=== PATIENT | female | born 1970 | race Caucasian/White ===

== ENCOUNTER 2018-10-29 23:52 | Emergency (ER) | payer OTHER ==
[~2018-10-29] VITALS: Ht 167.6 cm; Wt 59.4 kg
--- OUTSIDE RECORDS SUMMARY | 2018-10-29 23:55 | XMS REPORT | Summary of Care ---
Author Author [facility] Organization [facility] Address Unknown Phone Unavailable Encounter FIN [facility] [id number] Date(s): 10/23/17 - 10/23/17 [facility] [address] [place], [place] [address] Discharge Diagnosis: Sacrococcygeal disorders, not elsewhere classified Discharge Disposition: Discharged to Home or Self Care Attending Physician: Arnulfo Durbin MD Admitting Physician: Arnulfo Durbin MD Vital Signs 1 2 3 Most recent to oldest [Reference Range]: 36.0 DegC *LOW* (10/23/17 2:25 PM) 37.0 DegC (10/23/17 12:25 PM) Temperature Temporal Artery [36.3-37.8 DegC] 96.8 (10/23/17 2:25 PM) Temperature Temporal Fahrenheit 68 bpm (10/23/17 2:40 PM) 68 bpm (10/23/17 2:35 PM) 70 bpm (10/23/17 2:30 PM) Peripheral Pulse Rate [55-105 bpm] 16 (10/23/17 2:40 PM) 16 (10/23/17 2:35 PM) 16 (10/23/17 2:30 PM) Respiratory Rate [12-20] 98 % (10/23/17 2:40 PM) 98 % (10/23/17 2:35 PM) 98 % (10/23/17 2:30 PM) SpO2 [90-100 %] 105/58 mmHg *LOW* (10/23/17 2:40 PM) 110/59 mmHg (10/23/17 2:35 PM) 93/55 mmHg *LOW* (10/23/17 2:30 PM) Blood Pressure [110-120/65-85 mmHg] 73.7 mmHg (10/23/17 2:40 PM) 76 mmHg (10/23/17 2:35 PM) 67.7 mmHg (10/23/17 2:30 PM) Mean Arterial Pressure, Cuff 167 cm (10/23/17 12:25 PM) Height 167 cm (10/23/17 12:25 PM) Height/Length Dosing 66 in (10/23/17 12:25 PM) Height Inches 62.1 kg (10/23/17 12:25 PM) Weight 62.1 kg (10/23/17 12:25 PM) Weight Dosing 137 lb (10/23/17 12:25 PM) Weight Pounds 22.27 kg/m2 (10/23/17 12:25 PM) Body Mass Index Problem List Condition Effective Dates Status Health Status Informant Back pain(Confirmed) Active Allergies, Adverse Reactions, Alerts No Known Allergies Medications ceFAZolin 1 gm, Powder-Inj, IV, Once, first dose 10/23/17 14:09:00 CDT, stop date 10/23/17 14:09:00 CDT Start Date: 10/23/17 Stop Date: 10/23/17 Status: Completed ceFAZolin 1 gm, Soln-IV, IV Piggyback, Once, infuse over 30 minutes, first dose 10/23/17 1 3:00:00 CDT, stop date 10/23/17 13:00:00 CDT, Prophylaxis Start Date: 10/23/17 Stop Date: 10/23/17 Status: Completed gabapentin 300 mg oral capsule mg caps, Oral, TID, 0 Refill(s) Start Date: 10/23/17 Stop Date: 11/06/17 Status: Ordered ibuprofen 800 mg oral tablet 800 mg=1 tabs, Oral, BID, # 90 tabs, 0 Refill(s) Start Date: 03/26/15 Stop Date: 04/09/15 Status: Ordered lidocaine 2 mL, Injection, IV, Once, first dose 10/23/17 14:08:00 CDT, stop date 10/23/17 14:08:00 CDT Start Date: 10/23/17 Stop Date: 10/23/17 Status: Completed LR 1,000 mL 1,000 mL, IV, 100 mL/hr, start date 10/23/17 12:09:00 CDT, For Adults Start Date: 10/23/17 Stop Date: 10/23/17 Status: Discontinued LR 500 mL 500 mL, IV, 75 mL/hr, start date 10/23/17 12:09:00 CDT Start Date: 10/23/17 Stop Date: 10/23/17 Status: Discontinued Lyrica 75 mg oral capsule 75 mg=1 caps, Oral, BID, 0 Refill(s) Start Date: 03/26/15 Stop Date: 10/23/17 Status: Discontinued Misc Medication 300 mL, Soln-IV, IV, Once, first dose 10/23/17 14:21:00 CDT, stop date 10/23/17 14:21:00 CDT Start Date: 10/23/17 Stop Date: 10/23/17 Status: Completed Goodrich 5 mg-325 mg oral tablet tabs, Oral, q6hr, 0 Refill(s) Start Date: 10/23/17 Stop Date: 11/06/17 Status: Ordered Pain Ease topical spray 1 sprays, [place], TOP, Once, first dose 10/23/17 13:00:00 CDT, stop date 10/23/17 13:00:00 CDT, Apply topically for 4 - 10 seconds from a distance of 3 - 7 inc hes from the procedure site Start Date: 10/23/17 Stop Date: 10/23/17 Status: Completed propofol 50 mg=5 mL, Emulsion, IV, Once, first dose 10/23/17 14:17:00 CDT, stop date 10/05 14:17:00 CDT Start Date: 10/23/17 Stop Date: 10/23/17 Status: Completed propofol 50 mg=5 mL, Emulsion, IV, Once, first dose 10/23/17 14:13:00 CDT, stop date 10/05 14:13:00 CDT Start Date: 10/23/17 Stop Date: 10/23/17 Status: Completed propofol 50 mg=5 mL, Emulsion, IV, Once, first dose 10/23/17 14:09:00 CDT, stop date 10/05 14:09:00 CDT Start Date: 10/23/17 Stop Date: 10/23/17 Status: Completed Zipsor 25 mg oral capsule 25 mg=1 caps, Oral, QID, PRN for pain, # 40 caps, 0 Refill(s) Start Date: 03/26/15 Stop Date: 04/09/15 Status: Ordered Results LABORATORY Most recent to 1 oldest [Reference Range]: urine beta hcg Negative, Control Present (10/23/17 12:48 PM) Immunizations No data available for this section Procedures No data available for this section Social History Social History Type Response Assessment and Plan No data available for this section
--- OUTSIDE RECORDS SUMMARY | 2018-10-29 23:55 | XMS REPORT | Summary of Care ---
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, lumbar reg ion Discharge Disposition: Discharged to Home or Self Care Attending Physician: Arnulfo Durbin MD Admitting Physician: Arnulfo Durbin MD Vital Signs 1 2 3 Most recent to oldest [Reference Range]: 36.2 DegC *LOW* (12/25/17 9:20 AM) 36.3 DegC (12/25/17 8:20 AM) Temperature Temporal Artery [36.3-37.8 DegC] 97.16 (12/25/17 9:20 AM) Temperature Temporal Fahrenheit 76 bpm (12/25/17 9:35 AM) 73 bpm (12/25/17 9:30 AM) 73 bpm (12/25/17 9:25 AM) Peripheral Pulse Rate [55-105 bpm] 16 (12/25/17 9:35 AM) 16 (12/25/17 9:30 AM) 12 (12/25/17 9:25 AM) Respiratory Rate [12-20] 97 % (12/25/17 9:35 AM) 97 % (12/25/17 9:30 AM) 99 % (12/25/17 9:25 AM) SpO2 [90-100 %] 111/53 mmHg (12/25/17 9:35 AM) 105/67 mmHg *LOW* (12/25/17 9:30 AM) 97/58 mmHg *LOW* (12/25/17 9:25 AM) Blood Pressure [110-120/65-85 mmHg] 72.3 mmHg (12/25/17 9:35 AM) 79.7 mmHg (12/25/17 9:30 AM) 71 mmHg (12/25/17 9:25 AM) Mean Arterial Pressure, Cuff 167 cm (12/25/17 8:20 AM) 167 cm (12/24/17 4:08 PM) Height 167.64 cm (12/24/17 4:08 PM) Height/Length Estimated 167 cm (12/25/17 8:20 AM) 167 cm (12/24/17 4:08 PM) Height/Length Dosing 66 in (12/25/17 8:20 AM) 66 in (12/24/17 4:08 PM) Height Inches 59 kg (12/25/17 8:20 AM) 59 kg (12/24/17 4:08 PM) Weight 62 kg (12/24/17 4:08 PM) Weight Estimated 59 kg (12/25/17 8:20 AM) 59 kg (12/24/17 4:08 PM) Weight Dosing 130 lb (12/25/17 8:20 AM) 130 lb (12/24/17 4:08 PM) Weight Pounds 21.16 kg/m2 (12/25/17 8:20 AM) 21.16 kg/m2 (12/24/17 4:08 PM) Body Mass Index 22.06 kg/m2 (12/24/17 4:08 PM) Body Mass Index Estimated Problem List Condition Effective Dates Status Health Status Informant Back pain(Confirmed) Active Allergies, Adverse Reactions, Alerts No Known Allergies Medications ceFAZolin 1 gm, Soln-IV, IV Piggyback, Once, infuse over 30 minutes, first dose 12/25/17 9 :00:00 CDT, stop date 12/25/17 9:00:00 CDT, Prophylaxis Start Date: 12/25/17 Stop Date: 12/25/17 Status: Completed ceFAZolin 1 gm, Powder-Inj, IV, Once, first dose 12/25/17 9:03:00 CDT, stop date 12/25/17 9:03:00 CDT Start Date: 12/25/17 Stop Date: 12/25/17 Status: Completed gabapentin 300 mg oral capsule mg caps, Oral, TID, 0 Refill(s) Start Date: 10/23/17 Stop Date: 11/06/17 Status: Ordered ibuprofen 800 mg oral tablet 800 mg=1 tabs, Oral, BID, # 90 tabs, 0 Refill(s) Start Date: 03/26/15 Stop Date: 04/09/15 Status: Ordered lidocaine 2 mL, Injection, IV, Once, first dose 12/25/17 9:02:00 CDT, stop date 12/25/17 9 :02:00 CDT Start Date: 12/25/17 Stop Date: 12/25/17 Status: Completed LR 500 mL 500 mL, IV, 75 mL/hr, start date 12/25/17 8:02:00 CDT Start Date: 12/25/17 Stop Date: 12/25/17 Status: Discontinued Lyrica 75 mg oral capsule 75 mg=1 caps, Oral, BID, 0 Refill(s) Start Date: 03/26/15 Stop Date: 10/23/17 Status: Discontinued Misc Medication 200 mL, Soln-IV, IV, Once, first dose 12/25/17 9:20:00 CDT, stop date 12/25/17 9 :20:00 CDT Start Date: 12/25/17 Stop Date: 12/25/17 Status: Completed [place] 5 mg-325 mg oral tablet tabs, Oral, q6hr, 0 Refill(s) Start Date: 10/23/17 Stop Date: 11/06/17 Status: Ordered propofol 50 mg=5 mL, Emulsion, IV, Once, first dose 12/25/17 9:06:00 CDT, stop date 12/25 9:06:00 CDT Start Date: 12/25/17 Stop Date: 12/25/17 Status: Completed propofol 50 mg=5 mL, Emulsion, IV, Once, first dose 12/25/17 9:08:00 CDT, stop date 12/25 9:08:00 CDT Start Date: 12/25/17 Stop Date: 12/25/17 Status: Completed propofol 50 mg=5 mL, Emulsion, IV, Once, first dose 12/25/17 9:14:00 CDT, stop date 12/25 9:14:00 CDT Start Date: 12/25/17 Stop Date: 12/25/17 Status: Completed propofol 50 mg=5 mL, Emulsion, IV, Once, first dose 12/25/17 9:11:00 CDT, stop date 12/25 9:11:00 CDT Start Date: 12/25/17 Stop Date: 12/25/17 Status: Completed propofol 50 mg=5 mL, Emulsion, IV, Once, first dose 12/25/17 9:03:00 CDT, stop date 12/25 9:03:00 CDT Start Date: 12/25/17 Stop Date: 12/25/17 Status: Completed Zipsor 25 mg oral capsule 25 mg=1 caps, Oral, QID, PRN for pain, # 40 caps, 0 Refill(s) Start Date: 03/26/15 Stop Date: 12/24/17 Status: Discontinued Results LABORATORY Most recent to 1 oldest [Reference Range]: urine beta hcg Negative, Control Present (12/25/17 8:36 AM) Immunizations No data available for this section Procedures Procedure Date Related Diagnosis Body Site CODY Social History Social History Type Response Assessment and Plan No data available for this section
--- OUTSIDE RECORDS SUMMARY | 2018-10-29 23:55 | XMS REPORT | Continuity of Care Document ---
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, lumbar region 12/25/2017 12/27/2017 [facility] Discharge Diagnosis: Sacrococcygeal disorders, not elsewhere classified 10/23/2017 10/25/2017 [facility] Back pain Active Problem 01/31/2018 [facility] Medications Medication Details Route Status Patient Instructions Ordering Provider Order Date Source Misc Medication 300 mL, Soln-IV, IV, Once, first dose 01/29/18 9:31:00 CDT, stop date 01/29/18 9:31:00 CDT Inactive 01/29/2018 [facility] propofol 50 mg=5 mL, Emulsion, IV, Once, first dose 01/29/18 9:27:00 CDT, stop date 01/29/18 9:27:00 CDT Inactive 01/29/2018 [facility] propofol 50 mg=5 mL, Emulsion, IV, Once, first dose 01/29/18 9:25:00 CDT, stop date 01/29/18 9:25:00 CDT Inactive 01/29/2018 [facility] propofol 50 mg=5 mL, Emulsion, IV, Once, first dose 01/29/18 9:22:00 CDT, stop date 01/29/18 9:22:00 CDT Inactive 01/29/2018 [facility] propofol 50 mg=5 mL, Emulsion, IV, Once, first dose 01/29/18 9:19:00 CDT, stop date 01/29/18 9:19:00 CDT Inactive 01/29/2018 [facility] ceFAZolin 1 gm, Powder-Inj, IV, Once, first dose 01/29/18 9:19:00 CDT, stop date 01/29/18 9:19:00 CDT Inactive 01/29/2018 [facility] lidocaine 2 mL, Injection, IV, Once, first dose 01/29/18 9:17:00 CDT, stop date 01/29/18 9:17:00 CDT Inactive 01/29/2018 [facility] Cefazolin 1 gm, Soln-IV, IV Piggyback, Once, infuse over 30 minutes, first dose 01/29/18 8:00:00 CDT, stop date 01/29/18 8:00:00 CDT, Prophylaxis Inactive 01/29/2018 [facility] Pain Ease topical spray 1 sprays, Dike, TOP, Once, first dose 01/29/18 8:00:00 CDT, stop date 01/29/18 8:00:00 CDT, Apply topically for 4 - 10 seconds from a distance of 3 - 7 inches from the procedure site Inactive 01/29/2018 [facility] LR 500 mL 500 mL, IV, 75 mL/hr, start date 01/29/18 7:57:00 CDT Inactive 01/29/2018 [facility] Misc Medication 200 mL, Soln-IV, IV, Once, first dose 12/25/17 9:20:00 CDT, stop date 12/25/17 9:20:00 CDT Inactive 12/25/2017 [facility] propofol 50 mg=5 mL, Emulsion, IV, Once, first dose 12/25/17 9:14:00 CDT, stop date 12/25/17 9:14:00 CDT Inactive 12/25/2017 [facility] propofol 50 mg=5 mL, Emulsion, IV, Once, first dose 12/25/17 9:11:00 CDT, stop date 12/25/17 9:11:00 CDT Inactive 12/25/2017 [facility] propofol 50 mg=5 mL, Emulsion, IV, Once, first dose 12/25/17 9:08:00 CDT, stop date 12/25/17 9:08:00 CDT Inactive 12/25/2017 [facility] propofol 50 mg=5 mL, Emulsion, IV, Once, first dose 12/25/17 9:06:00 CDT, stop date 12/25/17 9:06:00 CDT Inactive 12/25/2017 [facility] ceFAZolin 1 gm, Powder-Inj, IV, Once, first dose 12/25/17 9:03:00 CDT, stop date 12/25/17 9:03:00 CDT Inactive 12/25/2017 [facility] propofol 50 mg=5 mL, Emulsion, IV, Once, first dose 12/25/17 9:03:00 CDT, stop date 12/25/17 9:03:00 CDT Inactive 12/25/2017 [facility] lidocaine 2 mL, Injection, IV, Once, first dose 12/25/17 9:02:00 CDT, stop date 12/25/17 9:02:00 CDT Inactive 12/25/2017 [facility] Cefazolin 1 gm, Soln-IV, IV Piggyback, Once, infuse over 30 minutes, first dose 12/25/17 9:00:00 CDT, stop date 12/25/17 9:00:00 CDT, Prophylaxis Inactive 12/25/2017 [facility] LR 500 mL 500 mL, IV, 75 mL/hr, start date 12/25/17 8:02:00 CDT Inactive 12/25/2017 [facility] Misc Medication 300 mL, Soln-IV, IV, Once, first dose 10/23/17 14:21:00 CDT, stop date 10/23/17 14:21:00 CDT Inactive 10/23/2017 [facility] propofol 50 mg=5 mL, Emulsion, IV, Once, first dose 10/23/17 14:17:00 CDT, stop date 10/23/17 14:17:00 CDT Inactive 10/23/2017 [facility] propofol 50 mg=5 mL, Emulsion, IV, Once, first dose 10/23/17 14:13:00 CDT, stop date 10/23/17 14:13:00 CDT Inactive 10/23/2017 [facility] propofol 50 mg=5 mL, Emulsion, IV, Once, first dose 10/23/17 14:09:00 CDT, stop date 10/23/17 14:09:00 CDT Inactive 10/23/2017 [facility] ceFAZolin 1 gm, Powder-Inj, IV, Once, first dose 10/23/17 14:09:00 CDT, stop date 10/23/17 14:09:00 CDT Inactive 10/23/2017 [facility] lidocaine 2 mL, Injection, IV, Once, first dose 10/23/17 14:08:00 CDT, stop date 10/23/17 14:08:00 CDT Inactive 10/23/2017 [facility] Pain Ease topical spray 1 sprays, Dike, TOP, Once, first dose 10/23/17 13:00:00 CDT, stop date 10/23/17 13:00:00 CDT, Apply topically for 4 - 10 seconds from a distance of 3 - 7 inches from the procedure site Inactive 10/23/2017 [facility] Cefazolin 1 gm, Soln-IV, IV Piggyback, Once, infuse over 30 minutes, first dose 10/23/17 13:00:00 CDT, stop date 10/23/17 13:00:00 CDT, Prophylaxis Inactive 10/23/2017 [facility] Acetaminophen 325 MG / Hydrocodone Bitartrate 5 MG Oral Tablet [Shunk 5/325] tabs, Oral, q6hr, 0 Refill(s) Active 10/23/2017 [facility] gabapentin 300 MG Oral Capsule mg caps, Oral, TID, 0 Refill(s) Active 10/23/2017 [facility] LR 1,000 mL 1,000 mL, IV, 100 mL/hr, start date 10/23/17 12:09:00 CDT, For Adults Inactive 10/23/2017 [facility] LR 500 mL 500 mL, IV, 75 mL/hr, start date 10/23/17 12:09:00 CDT Inactive 10/23/2017 [facility] Valium 10 mg=2 mL, Injection, IV Push, Once, first dose 03/27/15 13:00:00 PATIENT OMBUDSPERSON, stop date 03/27/15 13:00:00 PATIENT OMBUDSPERSON Inactive Gm 03/27/2015 [facility] Medication 300 mL, Soln-IV, IV, Once, first dose 03/27/15 11:31:00 PATIENT OMBUDSPERSON, stop date 03/27/15 11:31:00 PATIENT OMBUDSPERSON Inactive [facility] 03/27/2015 [facility] propofol 50 mg=5 mL, Emulsion, IV, Once, first dose 03/27/15 11:25:00 PATIENT OMBUDSPERSON, stop date 03/27/15 11:25:00 PATIENT OMBUDSPERSON Inactive [facility] 03/27/2015 [facility] propofol 50 mg=5 mL, Emulsion, IV, Once, first dose 03/27/15 11:23:00 PATIENT OMBUDSPERSON, stop date 03/27/15 11:23:00 PATIENT OMBUDSPERSON Inactive [facility] 03/27/2015 [facility] midazolam 2 mg=2 mL, Injection, IV, Once, first dose 03/27/15 11:23:00 PATIENT OMBUDSPERSON, stop date 03/27/15 11:23:00 PATIENT OMBUDSPERSON Inactive [facility] 03/27/2015 [facility] midazolam 2 mg=2 mL, Injection, IV, Once, first dose 03/27/15 11:19:00 PATIENT OMBUDSPERSON, stop date 03/27/15 11:19:00 PATIENT OMBUDSPERSON Inactive [place] 03/27/2015 [facility] lidocaine 2 mL, Injection, IV, Once, first dose 03/27/15 11:19:00 PATIENT OMBUDSPERSON, stop date 03/27/15 11:19:00 PATIENT OMBUDSPERSON Inactive [place] 03/27/2015 [facility] ethyl chloride topical spray 1 sprays, Dike, TOP, Once, first dose 03/27/15 11:00:00 PATIENT OMBUDSPERSON, stop date 03/27/15 11:00:00 PATIENT OMBUDSPERSON Inactive Gm 03/27/2015 [facility] LR 500 mL 500 mL, IV, 75 mL/hr, start date 03/27/15 10:41:00 PATIENT OMBUDSPERSON Inactive Gm 03/27/2015 [facility] Ibuprofen 800 MG Oral Tablet 800 mg=1 tabs, Oral, BID, # 90 tabs, 0 Refill(s) Active 03/26/2015 [facility] ibuprofen 800 mg oral tablet 800 mg=1 tabs, Oral, BID, # 90 tabs, 0 Refill(s) Active 03/26/2015 [facility] Diclofenac Potassium 25 MG Oral Capsule [Zipsor] 25 mg=1 caps, Oral, QID, PRN for pain, # 40 caps, 0 Refill(s) No Longer Active 03/26/2015 [facility] Zipsor 25 mg oral capsule 25 mg=1 caps, Oral, QID, PRN for pain, # 40 caps, 0 Refill(s) Active 03/26/2015 [facility] pregabalin 75 MG Oral Capsule [Lyrica] 75 mg=1 caps, Oral, BID, 0 Refill(s) No Longer Active 03/26/2015 [facility] Lyrica 75 mg oral capsule 75 mg=1 caps, Oral, BID, 0 Refill(s) Active 03/26/2015 [facility] Allergies, Adverse Reactions, Alerts No Known Medication Allergies Immunizations No Data Provided for This Section Results Order Name Results Value Reference Range Date Interpretation Comments Source LABORATORY urine beta hcg Negative, Control Present (12/25/17 8:36 AM) 12/25/2017 [facility] LABORATORY urine beta hcg Negative, Control Present (10/23/17 12:48 PM) 10/23/2017 [facility] Pathology Reports No Data Provided for This Section Diagnostic Reports No Data Provided for This Section Consultation Notes No Data Provided for This Section Discharge Summaries No Data Provided for This Section History and Physicals No Data Provided for This Section Vital Signs Vital Sign Value Date Comments Source Systolic (mm Hg) 100 01/29/2018 [facility] Diastolic (mm Hg) 56 01/29/2018 [facility] Respitory Rate 16 01/29/2018 [facility] Heart Rate 81 01/29/2018 [facility] Temperature Oral (F) 36.1 [place] 01/29/2018 [facility] Heart Rate 69 01/29/2018 [facility] Systolic (mm Hg) 92 01/29/2018 [facility] Diastolic (mm Hg) 52 01/29/2018 [facility] Respitory Rate 16 01/29/2018 [facility] Systolic (mm Hg) 105 01/29/2018 [facility] Diastolic (mm Hg) 64 01/29/2018 [facility] Height 167 cm 01/29/2018 [facility] Weight Measured 60 01/29/2018 [facility] Respitory Rate 16 01/29/2018 [facility] Peripheral Pulse Rate 69 01/29/2018 [facility] Temperature Oral (F) 36.5 Lucina 01/29/2018 [facility] Systolic (mm Hg) 111 12/25/2017 [facility] Diastolic (mm Hg) 53 12/25/2017 [facility] Peripheral Pulse Rate 76 12/25/2017 [facility] Respitory Rate 16 12/25/2017 [facility] Systolic (mm Hg) 105 12/25/2017 [facility] Diastolic (mm Hg) 67 12/25/2017 [facility] Peripheral Pulse Rate 73 12/25/2017 [facility] Respitory Rate 16 12/25/2017 [facility] Systolic (mm Hg) 97 12/25/2017 [facility] Diastolic (mm Hg) 58 12/25/2017 [facility] Respitory Rate 12 12/25/2017 [facility] Peripheral Pulse Rate 73 12/25/2017 [facility] Temperature Oral (F) 36.2 Lucina 12/25/2017 [facility] Height 167 cm 12/25/2017 [facility] Weight Measured 59 12/25/2017 [facility] Temperature Oral (F) 36.3 Lucina 12/25/2017 [facility] Weight Measured 59 12/24/2017 [facility] Height 167 cm 12/24/2017 [facility] Respitory Rate 16 10/23/2017 [facility] Peripheral Pulse Rate 68 10/23/2017 [facility] Systolic (mm Hg) 105 10/23/2017 [facility] Diastolic (mm Hg) 58 10/23/2017 [facility] Systolic (mm Hg) 110 10/23/2017 [facility] Diastolic (mm Hg) 59 10/23/2017 [facility] Peripheral Pulse Rate 68 10/23/2017 [facility] Respitory Rate 16 10/23/2017 [facility] Systolic (mm Hg) 93 10/23/2017 [facility] Diastolic (mm Hg) 55 10/23/2017 [facility] Respitory Rate 16 10/23/2017 [facility] Peripheral Pulse Rate 70 10/23/2017 [facility] Temperature Oral (F) 36.0 Lucina 10/23/2017 [facility] Temperature Oral (F) 37.0 Lucina 10/23/2017 [facility] Weight Measured 62.1 10/23/2017 [facility] Height 167 cm 10/23/2017 [facility] Heart Rate 63 03/27/2015 [facility] [place] Respitory Rate 14 03/27/2015 [facility] [place] Systolic (mm Hg) 114/68 03/27/2015 [facility] [place] Systolic (mm Hg) 93/64 03/27/2015 [facility] [place] Respitory Rate 15 03/27/2015 [facility] [place] Heart Rate 63 03/27/2015 [facility] [place] Systolic (mm Hg) 104/67 03/27/2015 [facility] [place] Heart Rate 64 03/27/2015 [facility] [place] Respitory Rate 15 03/27/2015 [facility] [place] Temperature Oral (F) 36.5 Lucina 03/27/2015 [facility] [place] Weight 62.14 03/27/2015 [facility] [place] Peripheral Pulse Rate 66 03/27/2015 [facility] [place] Temperature Oral (F) 36.5 Lucina 03/27/2015 [facility] [place] Weight 62 03/26/2015 [facility] [place] Height 167.64 cm 03/26/2015 [facility] [place] Weight 22.06 03/26/2015 [facility] Encounters Location Location Details Encounter Type Encounter Number Reason For Visit Attending Provider ADM Date DC Date Status Source [facility] Outpatient [id number] Chool Worrell MD 03/27/2015 03/27/2015 Discharged [facility] Outpatient [id number] Arnulfo Ramakrishna 10/23/2017 10/23/2017 Discharged [facility] Outpatient [id number] Arnulfo Ramakrishna 10/23/2017 10/23/2017 [facility] Outpatient [id number] Arnulfo Ramakrishna 12/25/2017 12/25/2017 Discharged [facility] Outpatient [id number] Arnulfo Ramakrishna 12/25/2017 12/25/2017 [facility] Outpatient [id number] Arnulfo Ramakrishna 01/29/2018 01/29/2018 Active [facility] Outpatient [id number] Arnulfo Ramakrishna 01/29/2018 01/29/2018 [facility] Procedures Procedure Code Date Perfomer Comments Source breast implants [facility] knee surgery [facility] CODY [facility] BLADDER SLING [facility] HYESTERECTOMY [facility] Assessment and Plan No Data Provided for This Section Plan of Care No Data Provided for This Section Social History Social History Date Source Social History TypeResponse [facility] Family History No Data Provided for This Section Advance Directives No Data Provided for This Section Functional Status No Data Provided for This Section
--- OUTSIDE RECORDS SUMMARY | 2018-10-29 23:55 | XMS REPORT | CCD ---
Author Author Auto Generated Organization [facility] Address Unknown Phone Unavailable Care Team Providers Care Lead Sustainability Specialist Name Role Phone Gm BENAVIDEZ, Cholo Nava CP Unavailable Allergies, Adverse Reactions, Alerts Substance Reaction Status No Known Allergies Active Problem List Condition Effective Dates Status Back pain Active Medications Medication Instructions Start Date End Date Status ibuprofen 800 mg 800 mg=1 tabs, Oral, BID, # 90 03/26/2015 04/09/2015 Ordered oral tablet tabs, 0 Refill(s) Valium 10 mg=2 mL, Injection, IV Push, 03/27/2015 03/27/2015 Ordered Once, first dose 03/27/15 13:00:00 PEST CONTROL OPERATOR, stop date 03/27/15 13:00:00 PEST CONTROL OPERATOR ethyl chloride 1 sprays, [place], TOP, Once, first 03/27/2015 03/27/2015 Completed topical spray dose 03/27/15 11:00:00 PEST CONTROL OPERATOR, stop date 03/27/15 11:00:00 PEST CONTROL OPERATOR LR 500 mL 500 mL, IV, 75 mL/hr, start date 03/27/2015 03/27/2015 Discontinued 03/27/15 10:41:00 PEST CONTROL OPERATOR Zipsor 25 mg oral 25 mg=1 caps, Oral, QID, PRN for 03/26/2015 04/09/2015 Ordered capsule pain, # 40 caps, 0 Refill(s) Lyrica 75 mg oral 75 mg=1 caps, Oral, BID, 0 03/26/2015 04/09/2015 Ordered capsule Refill(s) propofol 50 mg=5 mL, Emulsion, IV, Once, 03/27/2015 03/27/2015 Completed first dose 03/27/15 11:23:00 PEST CONTROL OPERATOR, stop date 03/27/15 11:23:00 PEST CONTROL OPERATOR propofol 50 mg=5 mL, Emulsion, IV, Once, 03/27/2015 03/27/2015 Completed first dose 03/27/15 11:25:00 PEST CONTROL OPERATOR, stop date 03/27/15 11:25:00 PEST CONTROL OPERATOR midazolam 2 mg=2 mL, Injection, IV, Once, 03/27/2015 03/27/2015 Completed first dose 03/27/15 11:23:00 PEST CONTROL OPERATOR, stop date 03/27/15 11:23:00 PEST CONTROL OPERATOR midazolam 2 mg=2 mL, Injection, IV, Once, 03/27/2015 03/27/2015 Completed first dose 03/27/15 11:19:00 PEST CONTROL OPERATOR, stop date 03/27/15 11:19:00 PEST CONTROL OPERATOR lidocaine 2 mL, Injection, IV, Once, first 03/27/2015 03/27/2015 Completed dose 03/27/15 11:19:00 PEST CONTROL OPERATOR, stop date 03/27/15 11:19:00 PEST CONTROL OPERATOR Misc Medication 300 mL, Soln-IV, IV, Once, first 03/27/2015 03/27/2015 Completed dose 03/27/15 11:31:00 PEST CONTROL OPERATOR, stop date 03/27/15 11:31:00 PEST CONTROL OPERATOR Vital Signs Most recent to oldest [Reference Range]: 1 2 3 Temperature Tympanic [36.6-38.1 DegC] 36.5 DegC *LOW* (03/27/2015 11:35:00) Temperature Temporal Artery [36.3-37.8 DegC] 36.5 DegC (03/27/2015 10:42:00) Temperature Tympanic Fahrenheit 97.7 (03/27/2015 11:35:00) Peripheral Pulse Rate [55-105 bpm] 66 bpm (03/27/2015 10:42:00) Heart Rate Monitored [60-100 bpm] 63 bpm (03/27/2015 13:20:00) 63 bpm (03/27/2015 11:50:00) 64 bpm (03/27/2015 11:45:00) Respiratory Rate [12-20] 14 (03/27/2015 13:20:00) 15 (03/27/2015 11:50:00) 15 (03/27/2015 11:45:00) SpO2 [90-100 %] 98 % (03/27/2015 13:20:00) 99 % (03/27/2015 10:42:00) Blood Pressure [110-120/65-85 mmHg] <content ID='[id number]'>114</content>/<content ID='[id number]'>68</content> mmHg (03/27/2015 13:20:00) <content ID='[id number]'>93</content>/<content ID='[id number]'>64</content> mmHg *LOW* (03/27/2015 11:50:00) <content ID='[id number]'>104</content>/<content ID='[id number]'>67</content> mmHg *LOW* (03/27/2015 11:45:00) Mean Arterial Pressure, Cuff 83.3 mmHg (03/27/2015 13:20:00) 73.7 mmHg (03/27/2015 11:50:00) 79.3 mmHg (03/27/2015 11:45:00) Most recent to oldest [Reference Range]: 1 2 3 Height 167.64 cm (03/26/2015 14:23:00) Height/Length Estimated 167.64 cm (03/26/2015 14:23:00) Height/Length Dosing 167.64 cm (03/26/2015 14:23:00) Height Inches 66 in (03/26/2015 14:23:00) Weight 62.14 kg (03/27/2015 10:42:00) 62 kg (03/26/2015 14:23:00) Weight Estimated 62 kg (03/26/2015 14:23:00) Weight Dosing 62.14 kg (03/27/2015 10:42:00) 62 kg (03/26/2015 14:23:00) Weight Pounds 137 lb (03/27/2015 10:42:00) 136 lb (03/26/2015 14:23:00) Body Mass Index 22.06 kg/m2 (03/26/2015 14:23:00) Body Mass Index Estimated 22.06 kg/m2 (03/26/2015 14:23:00) Procedures Procedures Date Related Diagnosis breast implants knee surgery
--- OUTSIDE RECORDS SUMMARY | 2018-10-29 23:55 | XMS REPORT | Summary of Care ---
Author Author [facility] Address Unknown Phone Unavailable Encounter [facility] [id number] Date(s): 01/29/18 - 01/29/18 [facility] [address] [place] [address]- Discharge Disposition: Discharged to Home or Self Care Attending Physician: Arnulfo Durbin MD Admitting Physician: Arnulfo Durbin MD Vital Signs 1 2 3 Most recent to oldest [Reference Range]: 36.1 DegC *LOW* (01/29/18 9:37 AM) 36.5 DegC (01/29/18 8:04 AM) Temperature Temporal Artery [36.3-37.8 DegC] 96.98 (01/29/18 9:37 AM) Temperature Temporal Fahrenheit 69 bpm (01/29/18 8:04 AM) Peripheral Pulse Rate [55-105 bpm] 81 bpm (01/29/18 9:45 AM) 69 bpm (01/29/18 9:37 AM) Heart Rate Monitored [60-100 bpm] 16 (01/29/18 9:45 AM) 16 (01/29/18 9:37 AM) 16 (01/29/18 8:04 AM) Respiratory Rate [12-20] 94 % (01/29/18 9:45 AM) 96 % (01/29/18 9:37 AM) 99 % (01/29/18 8:04 AM) SpO2 [90-100 %] 100/56 mmHg *LOW* (01/29/18 9:45 AM) 92/52 mmHg *LOW* (01/29/18 9:37 AM) 105/64 mmHg *LOW* (01/29/18 8:04 AM) Blood Pressure [110-120/65-85 mmHg] 167 cm (01/29/18 8:04 AM) Height 167 cm (10/26/18 8:04 AM) Height/Length Dosing 66 in (01/29/18 8:04 AM) Height Inches 60 kg (01/29/18 8:04 AM) Weight 60 kg (01/29/18 8:04 AM) Weight Dosing 132 lb (01/29/18 8:04 AM) Weight Pounds 21.51 kg/m2 (01/29/18 8:04 AM) Body Mass Index Problem List Condition Effective Dates Status Health Status Informant Back pain(Confirmed) Active Allergies, Adverse Reactions, Alerts No Known Allergies Medications ceFAZolin 1 gm, Soln-IV, IV Piggyback, Once, infuse over 30 minutes, first dose 01/29/18 8 :00:00 CDT, stop date 01/29/18 8:00:00 CDT, Prophylaxis Start Date: 01/29/18 Stop Date: 01/29/18 Status: Completed ceFAZolin 1 gm, Powder-Inj, IV, Once, first dose 01/29/18 9:19:00 CDT, stop date 01/29/18 9:19:00 CDT Start Date: 01/29/18 Stop Date: 01/29/18 Status: Completed gabapentin 300 mg oral capsule mg caps, Oral, TID, 0 Refill(s) Start Date: 10/23/17 Stop Date: 11/06/17 Status: Ordered ibuprofen 800 mg oral tablet 800 mg=1 tabs, Oral, BID, # 90 tabs, 0 Refill(s) Start Date: 03/26/15 Stop Date: 04/09/15 Status: Ordered lidocaine 2 mL, Injection, IV, Once, first dose 01/29/18 9:17:00 CDT, stop date 01/29/18 9 :17:00 CDT Start Date: 01/29/18 Stop Date: 01/29/18 Status: Completed LR 500 mL 500 mL, IV, 75 mL/hr, start date 01/29/18 7:57:00 CDT Start Date: 01/29/18 Stop Date: 01/29/18 Status: Discontinued Lyrica 75 mg oral capsule 75 mg=1 caps, Oral, BID, 0 Refill(s) Start Date: 03/26/15 Stop Date: 10/23/17 Status: Discontinued Misc Medication 300 mL, Soln-IV, IV, Once, first dose 01/29/18 9:31:00 CDT, stop date 01/29/18 9 :31:00 CDT Start Date: 01/29/18 Stop Date: 01/29/18 Status: Completed [place] 5 mg-325 mg oral tablet tabs, Oral, q6hr, 0 Refill(s) Start Date: 10/23/17 Stop Date: 11/06/17 Status: Ordered Pain Ease topical spray 1 sprays, [place], TOP, Once, first dose 01/29/18 8:00:00 CDT, stop date 01/29/18 8:00:00 CDT, Apply topically for 4 - 10 seconds from a distance of 3 - 7 inche s from the procedure site Start Date: 01/29/18 Stop Date: 01/29/18 Status: Completed propofol 50 mg=5 mL, Emulsion, IV, Once, first dose 01/29/18 9:27:00 CDT, stop date 01/29 9:27:00 CDT Start Date: 01/29/18 Stop Date: 01/29/18 Status: Completed propofol 50 mg=5 mL, Emulsion, IV, Once, first dose 01/29/18 9:19:00 CDT, stop date 01/29 9:19:00 CDT Start Date: 01/29/18 Stop Date: 01/29/18 Status: Completed propofol 50 mg=5 mL, Emulsion, IV, Once, first dose 01/29/18 9:22:00 CDT, stop date 01/29 9:22:00 CDT Start Date: 01/29/18 Stop Date: 01/29/18 Status: Completed propofol 50 mg=5 mL, Emulsion, IV, Once, first dose 01/29/18 9:25:00 CDT, stop date 01/29 9:25:00 CDT Start Date: 01/29/18 Stop Date: 01/29/18 Status: Completed Zipsor 25 mg oral capsule 25 mg=1 caps, Oral, QID, PRN for pain, # 40 caps, 0 Refill(s) Start Date: 03/26/15 Stop Date: 12/24/17 Status: Discontinued Results No data available for this section Immunizations No data available for this section Procedures Procedure Date Related Diagnosis Body Site BLADDER SLING HYESTERECTOMY Social History Social History Type Response Assessment and Plan No data available for this section
[2018-10-30 00:30] LABS: BASOPHILS % 0.4 % (0.0-1.0); EOSINOPHILS # (AUTO) 0.2 (0.0-0.4); EOSINOPHILS % 1.7 % (0.0-6.0); HEMATOCRIT 42.2 % (34.2-44.1); HEMOGLOBIN 14.8 g/dL (12.0-16.0); LYMPHOCYTES # (AUTO) 1.7 (1.0-3.2); LYMPHOCYTES % 18.6 % (18.0-39.1); MEAN CORPUSCULAR HEMOGLOBIN 31.2 pg (28-32); MEAN CORPUSCULAR HGB CONC 35.1 g/dL (31-35); MONOCYTES # (AUTO) 0.9 (0.2-0.8); MONOCYTES % 10.5 % (4.4-11.3); NEUTROPHILS # (AUTO) 6.1 (2.1-6.9); NEUTROPHILS % 68.5 % (38.7-80.0); PLATELET COUNT 268 x10e3/uL (140-360); RED BLOOD COUNT 4.74 x10e6/uL (3.6-5.1); RED CELL DISTRIBUTION WIDTH 12.7 % (11.7-14.4)
[2018-10-30 00:50] LABS: ANION GAP 17.8 mmol/L (8-16); BLOOD UREA NITROGEN 12 mg/dL (7-26); BUN/CREATININE RATIO 16 (6-25); CALCIUM 10.1 mg/dL (8.4-10.2); CARBON DIOXIDE 23 mmol/L (22-29); CHLORIDE 97 mmol/L (98-107); CREATINE KINASE 240 IU/L (29-168); CREATININE, SERUM 0.76 mg/dL (0.57-1.11); EST GLOMERULAR FILTRATION RATE > 60 ML/MIN (60-); GLUCOSE 128 mg/dL (74-118); POTASSIUM 3.8 mmol/L (3.5-5.1); SODIUM 134 mmol/L (136-145)
[2018-10-30 03:42] VITALS: BP 111/71
== END 2018-10-30 03:57 | disposition home or self-care (01) ==
LOC: ER 23:52
DX: F15.10 Other stimulant abuse, uncomplicated (principal)
CPT/HCPCS: 36415; 80048; 82550; 82553; 84484; 85025; 93005; 99283